=== PATIENT | female | born 1950 | race Caucasian/White ===

== ENCOUNTER 2020-10-04 06:05 | Observation (INO) ==
--- NOTE | 2020-08-26 10:25 | PAT Medication Instructions ---
Medication Instructions Date of Service August 26, 2020 Home Medications acetaminophen 500 mg tablet 500 mg PO TID amoxicillin 250 mg capsule 125 mg PO .EVERYOTHERDAY cetirizine 10 mg capsule 10 mg PO DAILY PRN ibuprofen 400 mg tablet 400 mg PO TID imipramine HCl 50 mg tablet 100 mg PO HS Gaviscon-Uk 30 ml PO UD PRN calcium carbonate [Calcium 600] 600 mg PO QPM cholecalciferol (vitamin D3) [Vitamin D3] 50 mcg PO QPM multivitamin 1 tab PO QPM omega 0-cet-wjb-fish oil [Fish Oil] 1 cap PO QPM pantoprazole 40 mg PO QPM Continue as directed amoxicillin 250 mg capsule 125 mg PO .EVERYOTHERDAY ASK your surgeon for instructions ibuprofen 400 mg tablet 400 mg PO TID STOP taking 2 weeks before surgery (or as soon as possible if surgery is within 2 weeks) omega 9-jyt-iao-fish oil [Fish Oil] 1 cap PO QPM DO NOT take the morning of surgery cetirizine 10 mg capsule 10 mg PO DAILY PRN Gaviscon-Uk 30 ml PO UD PRN Take morning of surgery With a small sip of water, OTHERWISE NOTHING TO EAT OR DRINK AFTER MIDNIGHT: acetaminophen 500 mg tablet 500 mg PO TID (okay to take up to 4 hours prior to surgery if needed) Take evening before surgery acetaminophen 500 mg tablet 500 mg PO TID cetirizine 10 mg capsule 10 mg PO DAILY PRN (if needed) imipramine HCl 50 mg tablet 100 mg PO HS Gaviscon-Uk 30 ml PO UD PRN (if needed) calcium carbonate [Calcium 600] 600 mg PO QPM cholecalciferol (vitamin D3) [Vitamin D3] 50 mcg PO QPM multivitamin 1 tab PO QPM pantoprazole 40 mg PO QPM Other Notes If you have any questions please call us at [phone] or [phone] or [phone] or [phone]
--- NOTE | 2020-08-29 11:52 | Anesthesiology Consultation ---
Date of Service August 29, 2020 Assessment & Plan (1) Encounter for pre-operative examination: - COVID screening: Per assessment on 08/29: Travel screen negative since 08/18 (did travel to [facility] 08/11-08/18 by car to visit family at their home). Patient will travel again to [place] [facility] (return will be 09/13). No other travel planned prior to surgery. Patient will return from travel more than 2 weeks prior to preop COVID testing. No known COVID-19 positive contacts or current COVID-19 related symptoms. Patient fully vaccinated. Surgeon arranging preop COVID testing. Awaiting results. - Acid reflux: patient reports significant acid reflux especially when laying flat* Chart Review Chart Review: Acceptable Risk for Surgery and Patient seen in Pre Admission Testing Teaching & Discussion Pre-Anesthesia Teaching/Discussion Notes: Instructed NPO after midnight before surgery,except medications with 15 cc of water. Medication instructions provided according to the PAT guidelines. History Surgery Operation Date: 10/04/20 07:00 Proposed Procedures p Right Total Hip Replacement - Gonzalo Rodriguez MD Height/Weight Height: 5 ft Weight: 59.1 kg Allergies Allergy/AdvReac Type Severity Reaction Status Date / Time meloxicam AdvReac Unknown Gastrointestinal Verified 08/29/20 08:59 Upset naproxen [From Aleve] AdvReac Unknown Gastrointestinal Verified 08/29/20 08:59 Upset Medications Home Medications Medication Instructions Recorded Confirmed Last Taken acetaminophen 500 mg tablet 500 mg PO TID 06/27/20 08/24/20 Unknown amoxicillin 250 mg capsule 125 mg PO .EVERYOTHERDAY cap 06/27/20 08/24/20 Unknown cetirizine 10 mg capsule 10 mg PO DAILY PRN 06/27/20 08/24/20 Unknown ibuprofen 400 mg tablet 400 mg PO TID 06/27/20 08/24/20 Unknown imipramine HCl 50 mg tablet 100 mg PO HS tab 06/27/20 08/24/20 Unknown Gaviscon-Uk 30 ml PO UD PRN 08/24/20 08/24/20 Unknown calcium carbonate [Calcium 600] 600 mg PO QPM 08/24/20 08/24/20 Unknown cholecalciferol (vitamin D3) 50 mcg PO QPM 08/24/20 08/24/20 Unknown [Vitamin D3] multivitamin 1 tab PO QPM 08/24/20 08/24/20 Unknown omega 8-uks-uyl-fish oil [Fish Oil] 1 cap PO QPM 08/24/20 08/24/20 Unknown pantoprazole 40 mg PO QPM 08/24/20 08/24/20 Unknown Past Medical History Medical History Anxiety Chronic back pain CMT (Lfswywf-Wascj-Gnayg disease) Cdtwdjg-Jxukn-Habiu (CMT) 1B > Arm/leg weakness, foot deformity > follows with Dr. Gonzalez ([facility]) Degenerative joint disease of right hip Depression GERD (gastroesophageal reflux disease) Hiatal hernia MVP (mitral valve prolapse) Remotely told several years ago (10+ years ago), no recent echo- no murmur at PAT Osteoarthritis Temporomandibular joint disorder + clicking, remote hx of locking Exercise / Class Metabolic Activity III < 4 Walking/Shop/Light housework (uses cane) Past Family History Family History Other No known health problems Past Surgical History Surgical History History of colonoscopy History of esophagogastroduodenoscopy (EGD) History of foot surgery R/L ([facility]) History of hand surgery Finger History of tooth extraction WTE, + implant Past Anesthesia History No Hx of Anesthesia Complications (except PONV (with general anesthesia)) and No Family Hx of Anesthesia Complications History of PONV History of PONV (PONV (with general anesthesia)) and Hx of Motion Sickness (occasional) Social History Smoking Status: Never smoker Do You Dip or Chew Tobacco: No Hx Alcohol Use: Yes Alcohol type: wine and hard liquor Alcohol Intake Frequency Comment: 2x/week Hx Substance Use: No Review of Systems Patient denies chest pain, shortness of breath, fever, chills, cough, wheezing, palpitations. Physical Exam Vital Signs VITALS BP 152/79 P 83 TEMP SP02 98%RA RESP 18 PHYSICAL Decreased cervical extension range of motion. Full TMJ range of motion. TMD 3 finger breaths Mallampati Score 2 Dentition: missing molar, + implants (lower front) Lungs: clear throughout to auscultation Cardiac: regular rate and rhythm, no murmurs noted Spine: normal Carotid arteries: negative bruit Extremities: no edema Testing Laboratory Results 08/29/20 12:38 08/29/20 12:38 PT 9.7 Seconds (9.0-12.0) 08/29/20 12:38 INR 1.0 (0.9-1.1) 08/29/20 12:38 APTT 25.4 Seconds (21.0-31.0) 08/29/20 12:38 Blood Type A Positive 08/29/20 12:38 Antibody Screen NEGATIVE 08/29/20 12:38 Electrocardiogram Date: 08/29/20 Findings: + NSR @ (80) Chest X-Ray Date: 08/29/20 Findings: + NAD
[2020-08-29 13:12] LABS: Basophils # (auto) 0.03 K/uL (0-0.2); Basophils % (auto) 0.5 %; Eosinophils # (auto) 0.24 K/uL (0-0.5); Eosinophils % (auto) 3.8 %; Hematocrit (blood only) 35.3 % (37-47); Hemoglobin 11.6 g/dL (12.0-16.0); Immature Granulocytes # (auto) 0.02 K/uL (0.00-0.02); Immature Granulocytes % (auto) 0.3 %; Lymphocytes # (auto) 1.21 K/uL (1.2-3.4); Lymphocytes % (auto) 19.2 %; Mean Corpuscular Hemoglobin 31.1 pg (25-34); Mean Corpuscular Hgb Conc 32.9 g/dL (32-36); Mean Corpuscular Volume 94.6 fL (80-100); Mean Platelet Volume 9.3 fL (7.4-10.4); Monocytes # (auto) 0.42 K/uL (0.11-0.59); Monocytes % (auto) 6.7 %; Neutrophils # (auto) 4.37 K/uL (1.4-6.5); Neutrophils % (auto) 69.5 %; Platelet Count 499 K/uL (130-400); RDW Coefficient of Variation 13.3 % (11.5-14.5); RDW Standard Deviation 46.2 fL (36.4-46.3); Red Blood Count 3.73 M/uL (4.2-5.4); White Blood Count 6.29 K/uL (4.8-10.8)
--- NOTE | 2020-08-29 13:12 | XRay Report ---
XR chest Pre-admission PA/Lat HISTORY: Preop. COMPARISON: None. FINDINGS: The lungs are clear. Cardiac silhouette is normal in size. No pleural effusions. No pneumot horax. IMPRESSION: No acute process. ACT 112: Negative or not required by law. Electronically signed by: Thomas Qureshi M.D. 08/29/2020 1:11 PM
[2020-08-29 13:22] LABS: BUN Creatinine Ratio 33.7 (10-20); Calcium 9.7 mg/dl (8.5-10.1); Creatinine Clr Calc Pharmacy 65.7 ml/min; Est GFR (Non-African American) 90.6 ml/min; Potassium 4.2 mmol/L (3.5-5.1)
[2020-08-29 13:36] LABS: Partial Thromboplastin Time 25.4 Seconds (21.0-31.0); Prothrombin Time 9.7 Seconds (9.0-12.0)
--- NOTE | 2020-08-29 18:02 | Electrocardiogram Report ---
Test Reason : Blood Pressure : / mmHG Vent. Rate : 080 BPM Atrial Rate : 080 BPM P-R Int : 180 ms QRS Dur : 088 ms QT Int : 384 ms P-R-T Axes : 081 054 059 degrees QTc Int : 442 ms Normal sinus rhythm Normal ECG No previous ECGs available Confirmed by Jan Garcia ([id number]) on 08/29/2020 6:02:22 PM Referred By: Gonzalo Rodriguez Confirmed By:Ricardo Garcia
--- NOTE | 2020-09-27 07:29 | History and Physical Report ---
DATE OF ADMISSION: 10/04/2020 CHIEF COMPLAINT: Persistent and progressive right hip pain. HISTORY OF PRESENT ILLNESS: The patient is a 70-year-old white female with underlying Iihsyqp-Djhzr-Mqheq disease who presents for surgical treatment of her right hip. She has a 2-year history of gradually progressive increasing right hip pain and discomfort. She initially thought she just strained her hip, but it never got any better. She has had several injections into her hip area, which have become less effective over time. She describes groin pain, thigh pain, knee pain. She has resorted to using a cane to get around. She reports clicking, popping and grinding in her hip; it has become more debilitating. She would now like to have her hip fixed. PAST MEDICAL HISTORY: Significant for, 1. Povkmrf-Ewtmg-Iycte disease, type 1B. 2. Mitral valve prolapse. 3. Sliding hernia. 4. Gastroesophageal reflux disease. 5. TMJ. 6. Depression. 7. History of oral surgery. PAST SURGICAL HISTORY: Includes, 1. Multiple foot surgeries done for her Exljwqx-Mksms-Mhvrk disease. 2. Oral surgery. 3. Hand surgery. ALLERGIES: None. CURRENT MEDICATIONS: Include, 1. Imipramine. 2. Protonix. 3. Amoxicillin for her chronic dental issues. 4. Diclofenac gel. 5. Ibuprofen. 6. Zyrtec. 7. Triamcinolone. 8. Kenalog. SOCIAL HISTORY: A 70-year-old female. She is retired. 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 1-2 drinks per week. Does not smoke. FAMILY HISTORY: Significant for Smdsqoz-Lrngx-Erbcq disease. REVIEW OF SYSTEMS: Significant for the Yxnqizy-Jzstn-Loisp disease. Denies any chest pain or shortness of breath. No history of DVT or PE. She does have this chronic dental infection, which is apparently not active, but treated with suppressive antibiotics. She has seen her dentist and they do not want to do anything with this. PHYSICAL EXAMINATION: GENERAL: Shows a pleasant 70-year-old female. HEENT: Benign. NECK: Supple. No lymphadenopathy. LUNGS: Clear to auscultation. HEART: Regular rate and rhythm. ABDOMEN: Soft, nontender, nondistended. EXTREMITIES: Grossly neurovascularly intact except as follows: Examination of the right hip reveals the patient walks with a markedly antalgic gait. She uses a cane to walk. She is about 0.5 cm short on the right compared to the left. She has got pain and grinding with hip motion. This re-creates her pain. Negative straight leg raise. X-RAYS: X-rays of the right hip were reviewed. She has advanced right hip DJD. She has complete loss of her superior joint space. She has got crumbling and flattening of the femoral head. She has got cystic changes on both sides of the joint. This has progressed even over the past 3 months. ASSESSMENT: A 70-year-old white female with underlying Zgsorov-Bnjjj-Khewn disease with advanced right hip degenerative joint disease. This has become very debilitating for her. The patient also has underlying dental infection. It does not sound like it is too active on suppressive antibiotics. I encouraged her to get this fixed beforehand, but her doctors do not want to manage that or do anything with that. They plan on long-term suppression. PLAN: We talked about treatment options. The only surgical treatment is hip replacement. I did tell with this chronic dental issue, that is an issue and a concern and increases her risk of infection. Having said that, if they are not going to do anything about it, I think it is going to be hard for her to manage her hip without surgery. She has talked to her dentists and they want to just manage this as they have. In light of this and the patient's desires, we will proceed with hip replacement with increased risks. She is aware of this. Other risks and benefits include but not limited to DVT, PE, , infection, neurological injury, vascular injury, bleeding problems, fracture, dislocation, nerve palsy, need for revision surgery in the future. The patient understands and desires to proceed. Informed consent was obtained. We will have the S-ROM system available just in case due to her slight dysplasia. We will have the dual mobility cup available as well. She should be able to be discharged to home using [facility] program. Job ID: [id number] [facility]
[~2020-10-04 06:05] MED LIST: ACETAMINOPHEN 500 MG TAB PO SCH; FAMOTIDINE 20 MG TAB PO SCH; GABAPENTIN 300 MG CAP PO SCH; LR 500ML BOLUS, THEN 15ML/HR IV SCH; LR 60ML/HR IV SCH; METOCLOPRAMIDE HCL 10 MG TABLET PO SCH; Scopolamine 1 MG TDSY TD SCH; TRANEXAMIC ACID 1,000 MG **IV Pre-op IV SCH; ceFAZolin 2000MG 2,000 MG/15 ML SYR IV SCH
[2020-10-04] MEDS ORDERED: BUPIVACAINE 0.5 % 5 MG/1 ML PF 10ML VIAL ONE (06:24)
--- NOTE | 2020-10-04 06:52 | History & Physical Bridge Note ---
Date of Service October 04, 2020 History & Physical Bridge Note I have examined the patient, reviewed the History & Physical and in the interval since the performance of the History & Physical I have noted the following changes of clinical significance: no changes noted
[2020-10-04] MEDS ORDERED: PROPOFOL IV EMULSION 10 MG/ML 20 ML VIAL IV ONE (07:27)
[2020-10-04] MEDS ORDERED: MIDAZOLAM HCL 1 MG/ML 2ML VIAL ONE (07:28)
[2020-10-04] MEDS ORDERED: MoRPHine SULFATE PF 1 MG/ML 10 ML AMP/VIAL ONE (07:28)
[2020-10-04] MEDS ORDERED: fentaNYL citrate 100 MCG/2 ML VIAL ONE (07:28)
[2020-10-04] MEDS ORDERED: ONDANSETRON INJ 2 MG/ML 2 ML VIAL ONE (08:09)
[2020-10-04] MEDS ORDERED: HYDROmorphone INJ 1 MG/ML SYRINGE IV PRN (08:18)
[2020-10-04] MEDS ORDERED: ePHEDrine sulfate 50 MG/ML AMP IV PRN (08:18)
[2020-10-04] MEDS ORDERED: ATROPINE SULFATE 0.1 MG/ML 10ML SYR IV PRN (08:18)
[2020-10-04] MEDS ORDERED: ONDANSETRON INJ 2 MG/ML 2 ML VIAL IV PRN ×2 (08:18→11:45)
[2020-10-04] MEDS ORDERED: BUPIVACAINE/EPINEPHRINE 0.5% MPF 1:200,000 30 ML VIAL ONE (08:28)
[2020-10-04] MEDS ORDERED: PHENYLEPHRINE 100MCG/ML 5ML SYR ONE (09:15)
[2020-10-04] MEDS: fentaNYL citrate 100 MCG/2 ML VIAL IV PRN ×4 (10:29→11:02)
--- NOTE | 2020-10-04 10:29 | Operative Report ---
Post Operative Report Pre & Post Diagnosis Operation Date: 10/04/20 08:50 Pre-Op Diagnosis: Right Hip Osteoarthritis Post-Op Diagnosis: Right Hip Osteoarthritis I identified the patient and participated in the time-out.: Yes Procedure Operation Date: 10/04/20 08:50 Actual Procedures p Right Total Hip Replacement(Right) - Gonzalo Rodriguez MD Surgeon Gonzalo Rodriguez MD Office Specialist RUSS Grajeda Estimated Blood Loss 200 Findings Consistent with Post-Op Diagnosis Operative findings were advanced right hip DJD. She extensive grade 4 puby-qq-kdhi disease of the femoral head and acetabulum. She had osteophytes around the femoral neck particularly. That she had a very valgus angle to her femoral neck with very little offset. She had punctate hemorrhage of the femoral head Fluids 1000 cc Specimens Right femoral head sent for pathology. Anesthesia Type Spinal MAC Complications none Disposition Accompanied Patient To Recovery: Yes Disposition: Recovery Room Indications Patient is a 70-year-old female with underlying Qhtnaho-Cvdpf-Kyxey disease who is developed the increasing right hip pain discomfort in the past several years is gotten markedly worse over the past year the point where she had use a cane to get around. X-ray show advanced right hip DJD with collapse of the femoral head. She was markedly debilitated by this problem. She does have a chronic the infected dental implant which we tried to get removed beforehand but dated to not want to have this done. She elected proceed with a chronic suppressive antibiotics through her surgery. She does not have any active infection and oral cavity. The risks of infection were explained and she elected proceed with hip arthroplasty. Once again she was markedly debilitated by her hip problem. Description of Procedure Operative implants consist of: 1 Biomet G7 size 52 mm acetabular shell. 2. 6.5 cancellous acetabular screws 135 mm length 125 mm length. 3. Geismar hole cafe worker. 4. Highly cross-linked polyethylene liner with a 52 mm outer diameter and 36 mm inner diameter. 5. DePuy Corail size 8 standard offset short neck femoral stem. 6. +5/36 mm ceramic articular ball. The patient was taken to the operating, identified, placed on the operating table supine position but all contractors were properly padded. IV antibiotics tried by anesthesia team. A spinal anesthetic and been implemented holding area. Mireles catheter was placed in sterile fashion. The patient then placed in the left lateral decubitus position. An axillary roll was placed. A Stulberg hip positioner was used for positioning. The right hip and leg were then prepped and draped in usual sterile fashion. A posterior lateral approach to the right hip was then performed to a curvilinear incision centered over the greater trochanter. Sharp dissection was got through subcutaneous this down to the IT band gluteal fascia the IT band gluteal fascia then incised longitudinally in line with skin incision. The underlying greater bursa was excised. The piriformis and external rotators as well as the posterior capsule was then released from the posterior aspect of the hip joint as a single layer. Great care was taken throughout the procedure protect the sciatic nerve at all times. The hip was then internally rotated and dislocated. Femoral neck osteotomy cut was made with Final Cut about 14 mm above the lesser trochanter. The femoral head was removed and sent for pathology. As far as her neck angle as she did have a valgus angle to her femoral neck with about neutral version. The femur was retracted anteriorly. Attention drawn the acetabulum. The acetabular labrum was excised per the pulmonary fat was excised. Sequential reaming the acetabular was then performed again with size 43 and progressing up to 51. A 52 mm Biomet G7 acetabular shell was then placed in about 40 degrees lateral opening and 20 degrees of anteversion. It was fixed with two 6.5 cancellous acetabular screws. A trial liner was placed. Attention drawn the femur. The proximal femur was entered with a cookie-cutter followed by canal finder prior to broach with an 8 broach including even quite get that down. She had a pretty good cancellous envelope. We elected to trial this. The hip was trialed with a +5/36 mm articular ball. It was fully stable in full extension and external rotation and flexion to 90 degrees internal rotation to 50+ degrees. I elect to place these implants. All trial implants were removed. An apex hole cafe worker was placed. Highly cross-linked polyethylene liner was placed. A DePuy size 8 short neck standard angle femoral stem was impacted in position. +5/36 mm ceramic articular ball was placed. Hip was located once again found to be stable. Attention drawn toward closing. The wound was irrigated scope soft pulsatile lavage solution. I did inject locally with 60 cc of half percent Marcaine with epinephrine. The posterior capsule and external rotators then repaired through drill holes in the posterior trochanter with #2 Tycron suture as a single layer. The IT band gluteal fascia then closed in 1 PDS suture running fashion for subcutaneous tissue then closed with 2 layers with a deep layer #1 Vicryl suture and subcutaneous tissues with 2 Dexon suture in a buried interrupted fashion the skin was closed with skin yanely. Leg was then cleaned and dried and sterile dressing both Xeroform, 4 x 4's, ABD pad, foam tape was applied. The patient then transferred to the recovery room in stable condition. Patient tolerated procedure well and there were no complications. Robin Grajeda, my physician mri assistant, was present for the entire procedure. His assistance was essential and required for appropriate patient positioning, prepping and draping, surgical exposure, performing the technical details of the operation, placement the implants, closure of the wound, and placement of the sterile bandage. I attest to the content of the Intraoperative Record and any orders documented therein. Any exceptions are noted below.
--- NOTE | 2020-10-04 10:46 | XRay Report ---
XR hip 1V RT w pelvis CLINICAL HISTORY: Postop hip arthroplasty COMPARISON: None. DISCUSSION: There are postsurgical changes of a total right hip arthroplasty. The acetabular and femo ral components appear well seated. There is gas present within the soft tissues consistent with recen t surgery. There are overlying skin yanely. There is no dislocation. IMPRESSION: Postsurgical changes of a total right hip arthroplasty. ACT 112: Negative or not required by law. Electronically signed by: Rambo Borjas M.D. 10/04/2020 10:44 AM
[2020-10-04] MEDS ORDERED: MAGNESIUM HYDROXIDE SUSP 30 ML UDC PO PRN (11:45)
[2020-10-04] MEDS ORDERED: bisacodyL 10 MG SUPP PR PRN (11:45)
[2020-10-04] MEDS ORDERED: METOCLOPRAMIDE HCL INJ 5 MG/ML 2 ML VIAL IV PRN (11:45)
[2020-10-04] MEDS ORDERED: [UNRECOGNIZED DRUG - OTHER] PO PRN (11:45)
[2020-10-04] MEDS ORDERED: NALOXONE HCL 0.4 MG/1 ML VIAL/CARP IV PRN (11:45)
[2020-10-04] MEDS ORDERED: ALUMINUM/MAGNESIUM SUSP 30 ML UDC PO PRN (11:45)
[2020-10-04] MEDS ORDERED: HYDROmorphone INJ 0.5 MG/0.5 ML SYR IV PRN (11:45)
[2020-10-04] MEDS ORDERED: traMADol HCL 50 MG TABLET PO PRN (11:45)
[2020-10-04] MEDS ORDERED: CETIRIZINE HCL 10 MG TABLET PO PRN (12:24)
[2020-10-04] MEDS: SODIUM CHLORIDE 0.9% 1000ML 1,000 ML IV SCH ×2 (12:35→22:30)
[2020-10-04] MEDS: KETOROLAC TROMETHAMINE 15 MG/ML VIAL IV SCH ×2 (12:36→18:29)
--- NOTE | 2020-10-04 12:49 | Anesthesiology Progress Note ---
Date of Service October 04, 2020 Anesthesia Post Procedure Vital Signs Vital Signs: Temp Pulse Pulse Resp BP BP Pulse Ox 10/04/20 12:47 64 16 147/83 H 94 10/04/20 12:15 36.5 C 82 18 139/74 97 10/04/20 11:45 36.5 C 80 18 152/78 H 98 10/04/20 11:30 36.0 C L 76 20 132/63 98 10/04/20 11:15 86 16 126/65 100 10/04/20 11:00 85 19 145/77 H 100 10/04/20 10:50 85 18 150/82 H 100 10/04/20 10:40 86 17 156/72 H 100 10/04/20 10:30 88 18 154/72 H 97 10/04/20 10:20 36.2 C L 100 H 18 143/94 H 97 10/04/20 06:48 37.3 C 105 H 20 149/69 H 99 Pain Intensity Right Hip: Pain Intensity: 2 Transfer of Care Handoff Completed per policy Notes Mental Status: alert / awake / arousable and participated in evaluation Patient Amnestic to Procedure: Yes Nausea / Vomiting: adequately controlled Pain: adequately controlled Airway Patency, RR, SpO2: stable & adequate BP & HR: stable & adequate Hydration State: stable & adequate Neuraxial Anesthesia: was administered and sensory block is resolving Anesthetic Complications: no major complications apparent and Pt Satisfied with anesthetic care
[2020-10-04] MEDS: ACETAMINOPHEN 500 MG TAB PO SCH ×2 (13:27→22:25)
[2020-10-04] MEDS: Scopolamine CHECK PATCH PLACEMENT SCH ×2 (15:12→23:15)
[2020-10-04] MEDS ORDERED: TRANEXAMIC ACID / 0.7% NACL 1,000 MG/100 ML BAG IV SCH (16:15)
[2020-10-04] MEDS: ceFAZolin 1000MG 1,000 MG/7.5 ML SYR IV SCH (16:29)
[2020-10-04] MEDS: ASCORBIC ACID 500 MG TAB PO SCH (16:29)
[2020-10-04] MEDS: ASPIRIN 81 MG ECTAB PO SCH (20:34)
[2020-10-04] MEDS: DOCUSATE SODIUM 100 MG CAP PO SCH (20:36)
[2020-10-04] MEDS ORDERED: OMEGA-3 (PURIFIED FISH OIL) 1 GM CAP PO SCH (21:00)
[2020-10-04] MEDS ORDERED: PANTOprazole 40 MG TAB PO SCH (21:00)
[2020-10-04] MEDS ORDERED: AMOXICILLIN SUSP 250 MG/5 ML 100 ML BTL PO SCH (21:00)
[2020-10-04] MEDS ORDERED: CALCIUM CARBONATE 1250MG TAB PO SCH (21:00)
[2020-10-04] MEDS ORDERED: SENNA 8.6 MG TAB PO SCH (21:00)
[2020-10-04] MEDS ORDERED: IMIPRAMINE HCL 50 MG TAB PO SCH (21:00)
[2020-10-04] MEDS ORDERED: CHOLECALCIFEROL 1,000 UNITS 25 MCG TAB PO SCH (21:00)
[2020-10-04] MEDS ORDERED: MULTIVITAMIN TAB PO SCH (21:00)
[2020-10-05] MEDS: ceFAZolin 1000MG 1,000 MG/7.5 ML SYR IV SCH (01:57)
[2020-10-05] MEDS: KETOROLAC TROMETHAMINE 15 MG/ML VIAL IV SCH ×3 (01:58→13:56)
[2020-10-05] MEDS: ACETAMINOPHEN 500 MG TAB PO SCH ×2 (06:32→13:54)
[2020-10-05 06:50] LABS: Basophils # (auto) 0.02 K/uL (0-0.2); Basophils % (auto) 0.2 %; Eosinophils # (auto) 0.16 K/uL (0-0.5); Eosinophils % (auto) 1.8 %; Hemoglobin 9.3 g/dL (12.0-16.0); Immature Granulocytes # (auto) 0.01 K/uL (0.00-0.02); Immature Granulocytes % (auto) 0.1 %; Lymphocytes # (auto) 1.08 K/uL (1.2-3.4); Lymphocytes % (auto) 12.3 %; Mean Corpuscular Hemoglobin 30.8 pg (25-34); Mean Corpuscular Hgb Conc 32.1 g/dL (32-36); Mean Platelet Volume 9.3 fL (7.4-10.4); Monocytes # (auto) 0.77 K/uL (0.11-0.59); Monocytes % (auto) 8.8 %; Neutrophils # (auto) 6.75 K/uL (1.4-6.5); Neutrophils % (auto) 76.8 %; Platelet Count 370 K/uL (130-400); RDW Coefficient of Variation 14.1 % (11.5-14.5); RDW Standard Deviation 49.1 fL (36.4-46.3); Red Blood Count 3.02 M/uL (4.2-5.4); White Blood Count 8.79 K/uL (4.8-10.8)
[2020-10-05 07:19] LABS: BUN Creatinine Ratio 26.6 (10-20); Calcium 8.6 mg/dl (8.5-10.1); Creatinine Clr Calc Pharmacy 68.2 ml/min; Est GFR (African American) 106.6 ml/min; Potassium 4.2 mmol/L (3.5-5.1)
[2020-10-05] MEDS: DOCUSATE SODIUM 100 MG CAP PO SCH (07:57)
[2020-10-05] MEDS: ASPIRIN 81 MG ECTAB PO SCH (07:58)
[2020-10-05] MEDS: Scopolamine CHECK PATCH PLACEMENT SCH (07:58)
[2020-10-05] MEDS: ASCORBIC ACID 500 MG TAB PO SCH (07:58)
[2020-10-05] MEDS ORDERED: dexAMETHasone 10 MG in SYRINGE 0 ML IV SCH (08:00)
[2020-10-05] MEDS ORDERED: MULTIVITAMIN TAB PO SCH (09:00)
--- NOTE | 2020-10-05 12:41 | Progress Notes ---
DATE OF SERVICE: 10/05/2020 SUBJECTIVE: A 70-year-old white female postop day 1 from right hip replacement. She is doing quite well. Therapy went well. Pain is controlled. Denies any chest pain or shortness of breath. Not fe eling dizzy or lightheaded. OBJECTIVE PHYSICAL EXAMINATION: VITAL SIGNS: Temperature 37.0. Vital signs stable. GENERAL: A pleasant middle-aged female. She is sitting up at her bedside chair, looks comfortable. LUNGS: Clear to auscultation. HEART: Regular rate and rhythm. ABDOMEN: Soft, nontender, nondistended. EXTREMITIES: Grossly neurovascularly intact except as follows: Examination of the right hip reveals the dressing to be clean, dry and intact. Thigh is soft and supple. Leg lengths are equal. Hip is located. She is neurologically intact. She can dorsiflex and plantarflex her foot appropriately. LABORATORY DATA: Hemoglobin 9.3. Hematocrit 29.0. Electrolytes are stable. IMPRESSION: A 70-year-old female with underlying Cptrctp-Broyx-Jjghs disease, postoperative day #1 f rom a right hip replacement, doing well. Pain is controlled. Hip is located. She is neurologically intact. PLAN: 1. DVT prophylaxis including thigh-high TEDs, SCDs and aspirin twice a day. 2. PT, OT, weightbear as tolerated. Right total hip protocol. 3. Pain control, doing well with current pain regimen. 4. Disposition: Plan to discharge to home with some home health if does okay in therapy today. Job ID: [id number]
--- NOTE | 2020-10-15 10:03 | Discharge Summary ---
Date of Service October 15, 2020 Discharge Data Procedures Performed Operation Date: 10/04/20 08:50 Actual Procedures p Right Total Hip Replacement(Right) - Gonzalo Rodriguez MD Hospital Course (1) Status post total hip replacement, right: 70 year old patient admitted on 10/04/20 and underwent total hip arthroplasty. She tolerated the procedure well and there were no complications. Transferred to the PACU post op and later to the orthopedic floor for further care. She was given ancef for antibiotic prophylaxis. She was also given TRACY stockings, SCDs, and aspirin for DVT prophylaxis. Hemoglobin, hematocrit, and vital signs were monitored during her hospital stay and remained stable. Did not require any blood transfusions. There were no complications during her hospital stay. By post op day #1 the patient was tolerating a regular diet, pain was reasonably controlled with oral pain medicine, and she was participating in physical therapy. On post op day #1 the patient was discharged home and set up with home health care. She was given printed discharge instructions including prescriptions for extra strength tylenol, aspirin, and tramadol. Continue physical therapy, weight bearing as tolerated. Continue hip precautions. Continue TRACY stockings. Follow up approximately 2 weeks post op or sooner if there are problems or concerns. Coding Level of Care Code None Diagnoses Status post total hip replacement, right Z96.641
== END 2020-10-05 15:25 | disposition home health service (06) ==
LOC: ASU 06:05 → 3W 06:05
DX: M16.11 Unilateral primary osteoarthritis, right hip; G89.29 Other chronic pain; Z79.899 Other long term (current) drug therapy; K21.9 Gastro-esophageal reflux disease without esophagitis; Z20.822 Contact with and (suspected) exposure to COVID-19; G60.0 Hereditary motor and sensory neuropathy; M54.9 Dorsalgia, unspecified